=== PATIENT | female | born 1975 | race Native Hawaiian/Other Pacific Islander ===

== ENCOUNTER 2022-09-16 07:15 | Outpatient (CLI) | payer OTHER, SELFPAY ==
[2022-09-16 13:57] LABS: Aspartate Amino Transferase* 26 U/L (12-35)
[2022-09-16 13:58] LABS: Alanine Aminotransferase* 29 U/L (4-35)
== END 2022-09-16 07:16 | disposition home or self-care (01) ==
PROVIDERS: Visit Provider Physician Assistant Medical
DX: R10.9 Unspecified abdominal pain (principal); R11.10 Vomiting, unspecified
CPT/HCPCS: 84450; 84460